=== PATIENT | female | born 1965 | race African-American/Black ===

== ENCOUNTER 2017-04-07 20:36 | Emergency (ER) | payer BC ==
[2017-04-07] MEDS ORDERED: DIAZEPAM 5 MG TABLET PO ONE (20:53)
[2017-04-07 21:49] VITALS: BP 139/79
--- NOTE | 2017-04-07 22:09 | ER Document Report ---
ED General - General Chief Complaint: Anxiety Stated Complaint: HEADACHE Time Seen by Provider: 04/07/17 20:53 Notes: Patient is a 51-year-old female who presents with headache, emotionally overwhelmed, exhausted, after her mother recently . Patient reports that she feels tired, and does have a bitemporal, throbbing, aching headache. Patient attributes the symptoms to emotional distress over the past several weeks. Nothing seems to improve or worsen her symptoms. She denies a history of prior panic attacks or anxiety disorders. She denies any chest pain or shortness of breath. She has not seen her primary doctor regarding today's concerns. TRAVEL OUTSIDE OF THE [place] IN LAST 30 DAYS: No - Related Data Allergies/Adverse Reactions: ketorolac tromethamine [From Toradol] Allergy (Verified 04/07/17 20:50) Past Medical History - General Information source: Patient - Social History Smoking Status: Never Smoker Frequency of alcohol use: None Drug Abuse: None Lives with: Family Family History: Reviewed & Not Pertinent Psychiatric Medical History: Denies: Hx Depression Surgical Hx: Negative - Immunizations Hx Diphtheria, Pertussis, Tetanus Vaccination: Yes Review of Systems - Review of Systems Notes: Constitutional: Negative for fever. HENT: Negative for sore throat. Eyes: Negative for visual changes. Cardiovascular: Negative for chest pain. Respiratory: Negative for shortness of breath. Gastrointestinal: Negative for abdominal pain, vomiting or diarrhea. Genitourinary: Negative for dysuria. Musculoskeletal: Negative for back pain. Skin: Negative for rash. Neurological: Positive for headaches. 10 point ROS negative except as marked above and in HPI. Physical Exam - Vital signs Vitals: Temp Pulse Resp BP Pulse Ox 98.8 F 114 H 20 157/89 H 99 04/07/17 20:39 04/07/17 20:39 04/07/17 20:39 04/07/17 20:39 04/07/17 20:39 Interpretation: Hypertensive, Tachycardic Notes: PHYSICAL EXAMINATION: GENERAL: Well-appearing, well-nourished and in no acute distress. HEAD: Atraumatic, normocephalic. EYES: Pupils equal round and reactive to light, extraocular movements intact, sclera anicteric, conjunctiva are normal. ENT: nares patent, oropharynx clear without exudates. Moist mucous membranes. NECK: Normal range of motion, supple without lymphadenopathy LUNGS: Breath sounds clear to auscultation bilaterally and equal. No wheezes rales or rhonchi. HEART: Regular rate and rhythm without murmurs ABDOMEN: Soft, nontender, normoactive bowel sounds. No guarding, no rebound. No masses appreciated. EXTREMITIES: Normal range of motion, no pitting or edema. No cyanosis. NEUROLOGICAL: No focal neurological deficits. Moves all extremities spontaneously and on command. PSYCH: Somewhat anxious, depressed mood from baseline SKIN: Warm, Dry, normal turgor, no rashes or lesions noted. Course - Re-evaluation Re-evalutation: 04/07/17 22:07 Patient presents with history most consistent with an anxiety reaction in the setting of grief. Symptoms did resolve after receiving medical therapy here in the emergency department. Vitals otherwise within normal limits. I do not suspect an acute pulmonary embolus, ACS, pneumothorax, or any other acute left threatening pathology based on history and exam. I do not believe any labs or imaging are indicated at this time. At this time will discharge with return precautions and follow-up recommendations. Verbal discharge instructions given a the bedside and opportunity for questions given. Medication warnings reviewed. Patient is in agreement with this plan and has verbalized understanding of return precautions and the need for primary care follow-up in the next 24-72 hours. - Vital Signs Vital signs: Temp Pulse Resp BP Pulse Ox 98.1 F 85 16 139/79 H 99 04/07/17 21:48 04/07/17 21:48 04/07/17 21:48 04/07/17 21:48 04/07/17 21:48 - EKG Interpretation by Me Additional EKG results interpreted by me: 04/08/17 01:47 Sinus rhythm. Rate 77. No ST elevations or depressions. QTC is 408. Discharge - Discharge Clinical Impression: Grief reaction Condition: Good Disposition: HOME, SELF-CARE Instructions: Anxiety ([facility]) Additional Instructions: Please return if you have thoughts of wanting to hurt yourself, worsening of your symptoms, or any symptoms that are worrisome to you. We are always here for you [facility]! Prescriptions: Diazepam [Valium 5 mg Tablet] 5 - 10 mg PO DAILY PRN #10 tablet PRN Reason: Referrals: BEN FERREIRA MD [Primary Care Provider] - Follow up as needed
--- NOTE | 2017-04-07 22:49 | EKG REPORT ---
SEVERITY:- ABNORMAL ECG - SINUS RHYTHM LEFT VENTRICULAR HYPERTROPHY : Confirmed by: Perico Cortes 07-Apr-2017 22:48:56
--- NOTE | 2017-04-08 11:03 | EKG REPORT ---
SEVERITY:- ABNORMAL ECG - SINUS RHYTHM LEFT VENTRICULAR HYPERTROPHY : Confirmed on behalf of: Perico Cortes 08-Apr-2017 11:02:52
== END 2017-04-07 22:12 | disposition home or self-care (01) ==
LOC: EEVIPCON 20:36 → ER 20:36
DX: F43.23 Adjustment disorder with mixed anxiety and depressed mood (principal); R51 Headache; R53.83 Other fatigue; Z88.8 Allergy status to other drugs, medicaments and biological substances; R00.0 Tachycardia, unspecified
CPT/HCPCS: 93005; 93010; 99283

== ENCOUNTER 2017-06-06 02:02 | Emergency (ER) | payer BC ==
[2017-06-06 02:30] VITALS: BP 138/79
[2017-06-06] MEDS ORDERED: BENZONATATE 100 MG CAPSULE PO ONE (02:37)
--- NOTE | 2017-06-06 03:01 | ER Document Report ---
ED General - General Chief Complaint: Painful Cough Stated Complaint: PAINFUL COUGH Time Seen by Provider: 06/06/17 02:37 Notes: Patient is a 51-year-old female with a history of a prior CVA who presents with 1 month of persistent cough. The patient reports that she was treated with an azithromycin course approximately 3 weeks ago but did not have any improvement of her symptoms. She became concerned about the ongoing nature of her cough and decided to come to the emergency department tonight. She notes that nothing seems to improve or worsen her symptoms but she does note that her symptoms are worse at night often secondary to postnasal drip. Multiple sick contacts with same symptoms. She has not had any fever, vomiting, diarrhea, dyspnea, or exertional dyspnea. She was unable see her primary care doctor due to the holiday hours. She has had similar symptoms in the past with upper respiratory infections. TRAVEL OUTSIDE OF THE [place] IN LAST 30 DAYS: No - Related Data Allergies/Adverse Reactions: ketorolac tromethamine [From Toradol] Allergy (Verified 04/07/17 20:50) Past Medical History - General Information source: Patient - Social History Smoking Status: Never Smoker Chew tobacco use (# tins/day): No Frequency of alcohol use: Occasional Drug Abuse: None Lives with: Family Family History: Reviewed & Not Pertinent Patient has suicidal ideation: No Patient has homicidal ideation: No - Past Medical History Cardiac Medical History: Reports: Hx Hypercholesterolemia, Hx Hypertension Renal/ Medical History: Denies: Hx Peritoneal Dialysis Psychiatric Medical History: Denies: Hx Depression - Immunizations Hx Diphtheria, Pertussis, Tetanus Vaccination: Yes Review of Systems - Review of Systems Notes: Constitutional: Negative for fever. HENT: Negative for sore throat. Eyes: Negative for visual changes. Cardiovascular: Negative for chest pain. Respiratory: Positive for cough Gastrointestinal: Negative for abdominal pain, vomiting or diarrhea. Genitourinary: Negative for dysuria. Musculoskeletal: Negative for back pain. Skin: Negative for rash. Neurological: Negative for headaches, weakness or numbness. 10 point ROS negative except as marked above and in HPI. Physical Exam - Vital signs Vitals: Temp Pulse Resp BP Pulse Ox 98.7 F 86 18 138/79 H 99 06/06/17 02:27 06/06/17 02:27 06/06/17 02:27 06/06/17 02:27 06/06/17 02:27 Interpretation: Normal Notes: PHYSICAL EXAMINATION: GENERAL: Well-appearing, well-nourished and in no acute distress. HEAD: Atraumatic, normocephalic. EYES: Pupils equal round and reactive to light, extraocular movements intact, sclera anicteric, conjunctiva are normal. ENT: nares patent, oropharynx clear without exudates. Moist mucous membranes. NECK: Normal range of motion, supple without lymphadenopathy LUNGS: Breath sounds clear to auscultation bilaterally and equal. No wheezes rales or rhonchi. HEART: Regular rate and rhythm without murmurs ABDOMEN: Soft, nontender, normoactive bowel sounds. No guarding, no rebound. No masses appreciated. EXTREMITIES: Normal range of motion, no pitting or edema. No cyanosis. NEUROLOGICAL: No focal neurological deficits. Moves all extremities spontaneously and on command. PSYCH: Normal mood, normal affect. SKIN: Warm, Dry, normal turgor, no rashes or lesions noted. Course - Re-evaluation Re-evalutation: 06/06/17 02:56 Patient presents with a clinical history and exam most consistent with an acute viral bronchitis. Patient is overall well in appearance without tachypnea, hypoxemia, tachycardia, or difficulty with ambulation. Breath sounds are clear bilaterally. No fever. Patient does have additional signs of upper respiratory infection including nasal congestion, sore throat, and sinus pressure. Chest x-ray is clear without any evidence of a pneumonia. At this time will discharge with return precautions and follow-up recommendations. Verbal discharge instructions given a the bedside and opportunity for questions given. Medication warnings reviewed. Patient is in agreement with this plan and has verbalized understanding of return precautions and the need for primary care follow-up in the next 24-72 hours. - Vital Signs Vital signs: Temp Pulse Resp BP Pulse Ox 98.7 F 86 18 138/79 H 99 06/06/17 02:27 06/06/17 02:27 06/06/17 02:27 06/06/17 02:27 06/06/17 02:27 - Diagnostic Test Radiology reviewed: Image reviewed, Reports reviewed Radiology results interpreted by me: 06/06/17 02:56 Chest x-ray: No acute infiltrate or pneumothorax Discharge - Discharge Clinical Impression: Bronchitis, Chest wall pain Condition: Good Disposition: HOME, SELF-CARE Additional Instructions: You were seen for symptoms most consistent with bronchitis. This can take up to 12 weeks to fully resolve. This is generally due to a viral infection. Please follow-up with your primary doctor in the next 2-3 days. Return if you develop worsening cough, vomiting, fever >100.4, pass out, begin coughing blood, or have any other symptoms that are concerning to you. Please use the medications prescribed today as directed. Prescriptions: Benzonatate [Tessalon Perles 100 mg Capsule] 100 mg PO Q8HP PRN #40 capsule PRN Reason: Referrals: BEN FERREIRA MD [Primary Care Provider] - Follow up as needed
--- NOTE | 2017-06-06 03:15 | RADIOLOGY REPORT (SQ) ---
EXAM DESCRIPTION: CHEST PA/LAT CLINICAL HISTORY: er17 productive/painful cough COMPARISON: 01/25/2014 FINDINGS: Frontal and lateral views of the chest. The cardiomediastinal silhouette has normal size and contour. No consolidation, pneumothorax, or pleural effusion. No displaced rib fractures identified. Upper abdominal soft tissues are unremarkable. IMPRESSION: 1. No acute pulmonary process identified.
== END 2017-06-06 03:25 | disposition home or self-care (01) ==
LOC: ER 02:02
DX: J40 Bronchitis, not specified as acute or chronic (principal); R07.89 Other chest pain; R05 Cough; Z86.73 Personal history of transient ischemic attack (TIA), and cerebral infarction without residual deficits
CPT/HCPCS: 71020; 99283

== ENCOUNTER → 2017-08-04 | Outpatient (CLI) | payer BC ==
[2017-08-04 20:14] LABS: ABSOLUTE EOSINOPHILS # (AUTO) 0.2 10^3/uL (0.0-0.6); ABSOLUTE LYMPHOCYTES (AUTO) 3.3 10^3/uL (0.5-4.7); ABSOLUTE MONOCYTES (AUTO) 0.5 10^3/uL (0.1-1.4); ABSOLUTE NEUT (AUTO) 1.5 10^3/uL (1.7-8.2); BASOPHILS % (AUTO) 0.4 % (0-2); LYMPHOCYTES % (AUTO) 60.8 % (13-45); MEAN CORPUSCULAR HEMOGLOBIN 26.9 pg (27.0-33.4); MEAN CORPUSCULAR HGB CONC 33.2 g/dL (32.0-36.0); MEAN CORPUSCULAR VOLUME 81 fl (80-97); MONOCYTES % (AUTO) 9.1 % (3-13); PLATELET COUNT 242 10^3/uL (150-450); RED BLOOD COUNT 4.44 10^6/uL (3.72-5.28); RED CELL DISTRIBUTION WIDTH 14.7 % (11.5-14.0); SEGMENTED NEUTROPHILS % (AUTO) 26.7 % (42-78); TOTAL CELLS COUNTED % (AUTO) 100 %; WHITE BLOOD COUNT 5.5 10^3/uL (4.0-10.5)
[2017-08-04 20:26] LABS: ALANINE AMINOTRANSFERASE 24 U/L (9-52); ALKALINE PHOSPHATASE 84 U/L (38-126); ANION GAP 12 (5-19); ASPARTATE AMINO TRANSFERASE 30 U/L (14-36); BLOOD UREA NITROGEN 8 mg/dL (7-20); CALCIUM 9.2 mg/dL (8.4-10.2); CARBON DIOXIDE 24 mmol/L (22-30); CHLORIDE 108 mmol/L (98-107); CHOLESTEROL 156.87 mg/dL (0-200); GLUCOSE 101 mg/dL (75-110); SODIUM 143.9 mmol/L (137-145); TOTAL PROTEIN 6.9 g/dL (6.3-8.2); TRIGLYCERIDES 106 mg/dL (<150)
[2017-08-04 20:40] LABS: DIRECT LDL 89 mg/dL (<100)
[2017-08-04 20:45] LABS: BILIRUBIN,TOTAL < 0.1 mg/dL (0.2-1.3)
== END ==
LOC: LAB 19:52
PROVIDERS: ATTEND Internal Medicine Geriatric Medicine
DX: E55.9 Vitamin D deficiency, unspecified (principal)
CPT/HCPCS: 36415; 80053; 80061; 82306; 85025

== ENCOUNTER → 2018-08-17 | Outpatient (CLI) | payer BC ==
[2018-08-17 19:54] LABS: HEMATOCRIT 39.8 % (36.0-47.0); HEMOGLOBIN 13.5 g/dL (12.0-15.5); MEAN CORPUSCULAR HGB CONC 33.9 g/dL (32.0-36.0); MEAN CORPUSCULAR VOLUME 82 fl (80-97); PLATELET COUNT 248 10^3/uL (150-450); RED BLOOD COUNT 4.84 10^6/uL (3.72-5.28); RED CELL DISTRIBUTION WIDTH 14.3 % (11.5-14.0); WHITE BLOOD COUNT 5.8 10^3/uL (4.0-10.5)
[2018-08-17 20:12] LABS: ALANINE AMINOTRANSFERASE 17 U/L (9-52); ALBUMIN 4.5 g/dL (3.5-5.0); ALKALINE PHOSPHATASE 84 U/L (38-126); ANION GAP 10 (5-19); ASPARTATE AMINO TRANSFERASE 26 U/L (14-36); BILIRUBIN,DIRECT 0.1 mg/dL (0.0-0.4); BILIRUBIN,TOTAL 0.5 mg/dL (0.2-1.3); BLOOD UREA NITROGEN 11 mg/dL (7-20); CARBON DIOXIDE 24 mmol/L (22-30); CHLORIDE 106 mmol/L (98-107); GLUCOSE 101 mg/dL (75-110); POTASSIUM 4.1 mmol/L (3.6-5.0); SODIUM 139.6 mmol/L (137-145); TOTAL PROTEIN 7.9 g/dL (6.3-8.2); TRIGLYCERIDES 63 mg/dL (<150)
[2018-08-17 20:22] LABS: ABSOLUTE LYMPHOCYTES# (MANUAL) 4.6 10^3/uL (0.5-4.7); ABSOLUTE MONOCYTES # (MANUAL) 0.2 10^3/uL (0.1-1.4); ANISOCYTOSIS 1+; BASOPHILS % (MANUAL) 0 % (0-2); EOSINOPHILS % (MANUAL) 0 % (0-6); MONOCYTES % (MANUAL) 4 % (3-13); PLATELET COMMENT ADEQUATE; POLYCHROMASIA 1+; SEGMENTED NEUTROPHILS % (MAN) 17 % (42-78); TOTAL CELLS COUNTED 100
[2018-08-17 20:23] LABS: DIRECT LDL 111 mg/dL (<100)
[2018-08-18 08:39] LABS: LYMPHOCYTES % (MANUAL) 79 % (13-45)
[2018-08-19 10:23] LABS: PATH REVIEW PATHOLOGIST REVIEWED
== END ==
LOC: LAB 19:23
PROVIDERS: ATTEND Internal Medicine Geriatric Medicine
DX: Z00.00 Encounter for general adult medical examination without abnormal findings (principal)
CPT/HCPCS: 36415; 80053; 80061; 85025

== ENCOUNTER → 2018-11-12 | Outpatient (CLI) | payer BC | LOC: LB 23:25 | PROVIDERS: ATTEND Internal Medicine Geriatric Medicine | DX: E55.9 Vitamin D deficiency, unspecified (principal); Z11.4 Encounter for screening for human immunodeficiency virus [HIV] ==

== ENCOUNTER → 2018-12-26 | Outpatient (CLI) | payer BC | LOC: LAB 03:02 | PROVIDERS: ATTEND Internal Medicine Geriatric Medicine | DX: R53.83 Other fatigue (principal) ==

== ENCOUNTER → 2019-05-28 | Outpatient (CLI) | payer BC | LOC: LB 19:20 | PROVIDERS: ATTEND Internal Medicine Geriatric Medicine | DX: E55.9 Vitamin D deficiency, unspecified (principal) | CPT/HCPCS: 36415; 82306 ==

== ENCOUNTER → 2019-08-26 | Outpatient (CLI) | payer BC ==
[2019-08-26 07:58] LABS: ABSOLUTE EOSINOPHILS # (AUTO) 0.1 10^3/uL (0.0-0.6); ABSOLUTE LYMPHOCYTES (AUTO) 2.7 10^3/uL (0.5-4.7); ABSOLUTE MONOCYTES (AUTO) 0.4 10^3/uL (0.1-1.4); ABSOLUTE NEUT (AUTO) 1.6 10^3/uL (1.7-8.2); BASOPHILS % (AUTO) 0.3 % (0-2); EOSINOPHILS % (AUTO) 1.8 % (0-6); HEMATOCRIT 39.6 % (36.0-47.0); HEMOGLOBIN 13.3 g/dL (12.0-15.5); LYMPHOCYTES % (AUTO) 55.9 % (13-45); MEAN CORPUSCULAR HEMOGLOBIN 27.5 pg (27.0-33.4); MEAN CORPUSCULAR HGB CONC 33.7 g/dL (32.0-36.0); MEAN CORPUSCULAR VOLUME 82 fl (80-97); MONOCYTES % (AUTO) 8.4 % (3-13); PLATELET COUNT 239 10^3/uL (150-450); RED BLOOD COUNT 4.84 10^6/uL (3.72-5.28); RED CELL DISTRIBUTION WIDTH 14.8 % (11.5-14.0); SEGMENTED NEUTROPHILS % (AUTO) 33.6 % (42-78); TOTAL CELLS COUNTED % (AUTO) 100 %; WHITE BLOOD COUNT 4.8 10^3/uL (4.0-10.5)
[2019-08-26 08:23] LABS: ALBUMIN 4.1 g/dL (3.5-5.0); ALKALINE PHOSPHATASE 78 U/L (38-126); ANION GAP 8 (5-19); ASPARTATE AMINO TRANSFERASE 29 U/L (14-36); BILIRUBIN,TOTAL 0.4 mg/dL (0.2-1.3); BLOOD UREA NITROGEN 10 mg/dL (7-20); CALCIUM 9.4 mg/dL (8.4-10.2); CARBON DIOXIDE 25 mmol/L (22-30); CHLORIDE 107 mmol/L (98-107); CHOLESTEROL 212.27 mg/dL (0-200); GLUCOSE 106 mg/dL (75-110); POTASSIUM 4.2 mmol/L (3.6-5.0); TOTAL PROTEIN 7.5 g/dL (6.3-8.2); TRIGLYCERIDES 66 mg/dL (<150)
[2019-08-26 08:35] LABS: DIRECT LDL 126 mg/dL (<100)
[2019-08-26 08:37] LABS: FREE T3 4.75 pg/mL (2.77-5.27); FREE T4 (FREE THYROXINE) 0.91 ng/dL (0.78-2.19)
[2019-08-26 08:50] LABS: THYROID STIMULATING HORMONE 1.92 uIU/mL (0.47-4.68)
== END ==
LOC: OD 07:28
PROVIDERS: ATTEND Internal Medicine Geriatric Medicine
DX: Z00.00 Encounter for general adult medical examination without abnormal findings (principal); E55.9 Vitamin D deficiency, unspecified; R53.83 Other fatigue
CPT/HCPCS: 36415; 80053; 80061; 82306; 84436; 84439; 84443; 84481; 85025